=== PATIENT | female | born 1995 | race American Indian/Alaskan Native ===

== ENCOUNTER 2018-01-21 21:46 | Outpatient (CLI) | payer OTHER ==
[2018-01-21] MEDS ORDERED: PRENATAL TABLE1 EAC1 PO (22:10)
[2018-01-21] MEDS ORDERED: FOLIC ACID1 MG PO (22:11)
== END 2018-01-22 12:13 | disposition home or self-care (01) ==
LOC: OBS/DEL 21:46
DX: O26.893 Other specified pregnancy related conditions, third trimester (principal); R19.7 Diarrhea, unspecified; O21.8 Other vomiting complicating pregnancy; O60.03 Preterm labor without delivery, third trimester; Z34.83 Encounter for supervision of other normal pregnancy, third trimester

== ENCOUNTER 2018-03-17 15:37 | Inpatient (IN) | payer OTHER ==
[~2018-03-17] VITALS: Ht 162.6 cm; Wt 99.3 kg
[~2018-03-17 15:37] MED LIST: FOLIC ACID1 MG PO; PRENATAL TABLE1 EAC1 PO
== END 2018-03-26 14:42 | DRG 766 ==
LOC: O/R 03-23 06:00 → LDR 03-23 12:45 → OB/GYN 03-23 13:52 → LDR 03-23 15:37 → OB/GYN 03-26 14:42
PROVIDERS: Obstetrics & Gynecology
PROC: 0UL70ZZ Occlusion of Bilateral Fallopian Tubes, Open Approach (ICD-10-PCS; 2018-03-23)
PROC: 4A1HXCZ Monitoring of Products of Conception, Cardiac Rate, External Approach (ICD-10-PCS; 2018-03-23)
PROC: 10D00Z1 Extraction of Products of Conception, Low, Open Approach (ICD-10-PCS; principal; 2018-03-23 12:45)
DX: O82 Encounter for cesarean delivery without indication (principal); Z3A.38 38 weeks gestation of pregnancy; Z37.0 Single live birth; Z30.2 Encounter for sterilization